=== PATIENT | female | born 1945 | race Caucasian/White ===

== ENCOUNTER 2016-12-15 21:52 | Emergency (ER) | payer MEDICARE, OTHER ==
[~2016-12-15] VITALS: Ht 162.6 cm; Wt 77.0 kg
[~2016-12-15 21:52] MED LIST: ACETA PO; ALPRAZOLAM0.25 MG PO; AMITRIPTYLIN10 MG PO; AMLODIPINE5 MG PO; ASPIRIN81 MG PO; AUBAGIO14 MG PO; DOCUSATE SOD100 MG PO; FLEXERIL10 MG PO; FLEXERIL5 MG PO; FLORASTOR250 M1 PO; FLORICET PO; FOLIC ACID1 MG PO; HOLY BASIL; IMITREX25 MG PO; KEFLEX500 MG PO; LORTAB5 PO; MECLIZINE25 MG PO; NO; OXYCODONE HCL5 MG PO; OXYCODONE PO; PAROXETINE20 MG PO; PAXIL30 MG PO; PROVIGIL200 MG PO; PROZAC20 MG PO; REBI1 IM; REBI1 SC; SUMATRIPTAN SU100 MG PO; SYNTHROID112 MCG PO; TRAMADOL HCL50 MG PO; VITAMIN D PO; VITAMIN D400 UNI1 PO; ZOLOFT50 MG PO; [UNRECOGNIZED DRUG - OTHER] PO
[2016-12-15] MEDS ORDERED: PERCOCET 5/325M1 TAB PO (23:08)
[2016-12-15 23:30] VITALS: BP 137/77
== END 2016-12-15 23:33 | disposition home or self-care (01) ==
LOC: ED 21:52
DX: S93.401A Sprain of unspecified ligament of right ankle, initial encounter (principal); W18.30XA Fall on same level, unspecified, initial encounter; X50.1XXA Overexertion from prolonged static or awkward postures, initial encounter; Y93.01 Activity, walking, marching and hiking; Y92.009 Unspecified place in unspecified non-institutional (private) residence as the place of occurrence of the external cause; G35 Multiple sclerosis

== ENCOUNTER 2019-02-26 15:20 | Emergency (ER) | payer MEDICARE, OTHER ==
[~2019-02-26] VITALS: Ht 162.6 cm; Wt 80.0 kg
[~2019-02-26 15:20] MED LIST changes: +ALPRAZOLAM ER0.5 MG PO; +AUBAGIO14 MG; +HYDROCO/APAP1 TA9 PO; +MOTRIN400 MG PO; +NUEDEXTA1 CAP PO; +ONDANSETRON4 MG PO; +PERCOCET 5/325M1 TAB PO; +PROZAC20 M1 PO
[2019-02-26 17:28] VITALS: BP 153/73
== END 2019-02-26 18:38 | disposition home or self-care (01) ==
LOC: ED 15:20
PROC: 0HQ1XZZ Repair Face Skin, External Approach (ICD-10-PCS; principal; 2019-02-26)
DX: S01.81XA Laceration without foreign body of other part of head, initial encounter (principal); M25.512 Pain in left shoulder; I10 Essential (primary) hypertension; W01.0XXA Fall on same level from slipping, tripping and stumbling without subsequent striking against object, initial encounter

== ENCOUNTER 2019-03-07 14:39 | Emergency (ER) | payer MEDICARE, OTHER ==
[~2019-03-07] VITALS: Ht 162.6 cm; Wt 79.0 kg
[2019-03-07 15:00] VITALS: BP 139/73
== END 2019-03-07 15:00 | disposition home or self-care (01) ==
LOC: ED 14:39
DX: S01.80XA Unspecified open wound of other part of head, initial encounter (principal); X58.XXXA Exposure to other specified factors, initial encounter; I10 Essential (primary) hypertension